=== PATIENT | male | born 1990 | race Caucasian/White ===

== ENCOUNTER 2024-07-26 18:48 | Emergency (ER) | payer BC, MEDICAID ==
[~2024-07-26] VITALS: Ht 177.8 cm; Wt 86.0 kg
[2024-07-26 18:49] VITALS: TEMP 98.4; O2SAT 98
[2024-07-26] MEDS ORDERED: IBUP-2030 MT (20:25)
[2024-07-26] MEDS ORDERED: CYCL5TAB MT (20:25)
[2024-07-26 21:13] VITALS: BP 147/82; PULSE 54; RESP 16; O2SAT 99
== END 2024-07-26 21:14 | disposition home or self-care (01) ==
LOC: ER 18:48
DX: S60.222A Contusion of left hand, initial encounter (principal); F19.90 Other psychoactive substance use, unspecified, uncomplicated; V43.52XA Car driver injured in collision with other type car in traffic accident, initial encounter; Y93.89 Activity, other specified; Y92.89 Other specified places as the place of occurrence of the external cause; Y99.8 Other external cause status
CPT/HCPCS: 73130; 99283